=== PATIENT | female | born 1945 | race Caucasian/White ===

== ENCOUNTER 2024-10-27 08:37 | Day surgery (SDC) | payer MEDICARE, BC ==
[~2024-10-27 08:37] MED LIST: Acetaminophen 325 MG Tab PO PRN; Acetaminophen/Codeine 300-30 MG Tab PO PRN; Cataract Ophth Solution EYELF ONE; Moxifloxacin 0.5% Ophth Soln 3 ML Bottle EYELF ONE; Ondansetron 4 MG/2 ML SDV IVPUSH PRN; Phenylephrine 10% Ophth Soln 5 ML Bot EYELF ONE; Povidone-Iodine 5% Sterile Ophth Soln 30 ML Bottle EYELF ONE; Proparacaine 0.5% Ophth Soln 15 ML Bottle EYELF ONE; Sodium Chloride 0.9% 10 ML Syringe FLUSH PRN; Timolol Maleate 0.5% Ophth Soln 5 ML Bottle EYELF ONE; Tropicamide 1% Ophth Soln 15 ML Bottle EYELF ONE
[2024-10-27] MEDS: Proparacaine 0.5% Ophth Soln 15 ML Bottle EYELF ONE ×2 (10:02→11:47)
[2024-10-27] MEDS: Povidone-Iodine 5% Sterile Ophth Soln 30 ML Bottle EYELF ONE ×2 (10:03→11:47)
[2024-10-27] MEDS: Apraclonidine 0.5% Ophth Soln 5 ML Bot EYELF ONE (10:03)
[2024-10-27] MEDS: Dexamethasone/Neomycin/Polymyxin B Ophth Oint 3.5 GM Tube EYELF ONE (10:04)
[2024-10-27] MEDS: Diclofenac Sodium 0.1% Ophth Soln 5 ML Bottle EYELF ONE (10:04)
[2024-10-27] MEDS: Lidocaine 1% 30 ML SDV ONE (10:05)
[2024-10-27] MEDS: VANCOmycin 500 MG SDV EYELF ONE (10:06)
[2024-10-27] MEDS: Moxifloxacin 0.5% Ophth Soln 3 ML Bottle EYELF ONE (11:47)
[2024-10-27] MEDS: Phenylephrine 10% Ophth Soln 5 ML Bot EYELF ONE (11:48)
[2024-10-27] MEDS: Timolol Maleate 0.5% Ophth Soln 5 ML Bottle EYELF ONE (11:48)
[2024-10-27] MEDS: Tropicamide 1% Ophth Soln 15 ML Bottle EYELF ONE (11:48)
[2024-10-27] MEDS: Cataract Ophth Solution EYELF ONE (11:49)
== END 2024-10-27 11:08 | disposition home or self-care (01) ==
LOC: DL.SDS 08:37
PROVIDERS: ATTEND Ophthalmology
DX: H25.812 Combined forms of age-related cataract, left eye (principal); I11.0 Hypertensive heart disease with heart failure; I50.9 Heart failure, unspecified; Z88.5 Allergy status to narcotic agent; Z88.8 Allergy status to other drugs, medicaments and biological substances; Z79.899 Other long term (current) drug therapy; Z79.890 Hormone replacement therapy
CPT/HCPCS: A9270-GY; J3370; J3490